=== PATIENT | female | born 1970 | race African-American/Black ===

== ENCOUNTER → 2016-04-22 | Outpatient (CLI) | payer MEDICARE, OTHER ==
--- NOTE | 2016-04-22 12:02 | MR ---
EXAMINATION TYPE: MR cervical spine wo con DATE OF EXAM: 04/22/2016 11:53 AM COMPARISON: NONE HISTORY: Neck pain TECHNIQUE: Multiplanar, multisequence images of the cervical spine were acquired. C2-C3: No evidence for degenerative disc disease. No disc bulge/herniation or protrusion. No Canal stenosis. Foramina are patent bilaterally. C3-C4: There is mild disc desiccation is seen. Mild posterior central disc bulge with minimal effacem ent of the ventral thecal sac. No evidence for disc herniation, protrusion or central stenosis. Miriam noelle are patent bilaterally. C4-C5: There is mild disc desiccation is seen. Mild posterior central disc bulge with minimal effacem ent of the ventral thecal sac. No evidence for disc herniation, protrusion or central stenosis. Miriam noelle are patent bilaterally. C5-C6: There is mild disc desiccation is seen. Mild posterior central disc bulge with minimal effacem ent of the ventral thecal sac. No evidence for disc herniation, protrusion or central stenosis. Miriam noelle are patent bilaterally. C6-C7: No evidence for degenerative disc disease. No disc bulge/herniation or protrusion. No Canal stenosis. Foramina are patent bilaterally. C7-T1: No evidence for degenerative disc disease. No disc bulge/herniation or protrusion. No Canal stenosis. Foramina are patent bilaterally. Cervical segments are intact. There is normal alignment. Cervical spinal cord is of normal signal. Craniovertebral junction relationships are within normal limits. IMPRESSION: Mild degenerative disc space narrowing and disc bulging is noted.
== END | disposition home or self-care (01) ==
LOC: RADMRIMAIN 11:23
PROVIDERS: ATTEND Psychiatry & Neurology Pain Medicine
DX: M48.02 Spinal stenosis, cervical region (principal); M50.20 Other cervical disc displacement, unspecified cervical region
CPT/HCPCS: 72141

== ENCOUNTER → 2016-05-04 | Outpatient (CLI) | payer MEDICARE, OTHER ==
--- NOTE | 2016-05-04 11:41 | MR ---
EXAMINATION TYPE: MR lumbar spine wo con DATE OF EXAM: 05/04/2016 10:43 AM COMPARISON: 03/05/2011 HISTORY: Chronic lumbar pain TECHNIQUE: T1 and T2 axial and sagittal images of the lumbar spine are submitted. FINDINGS: There is no abnormal signal seen within the visualized spinal cord or paraspinal soft tissu es. At L1-2 there is no disc herniation or canal stenosis. No foraminal encroachment. At L2-3 there is no evidence of degenerative disc disease, disc herniation or canal stenosis. At L3-4 there is mild degenerative disc disease and facet arthropathy but no focal herniation or lisa l stenosis. Neural foramina patent. At L4-5 there is mild degenerative disc disease but no evidence of focal disc herniation or canal zenaida nosis. No foraminal encroachment. Mild facet arthropathy. At L5-S1 there is no disc herniation or canal stenosis. No foraminal encroachment. IMPRESSION: 1. Mild degenerative disc disease L3-4 and L4-5 with mild facet arthropathy but no evidence of discre te herniation or canal stenosis at any of the visualized levels.
== END | disposition home or self-care (01) ==
LOC: RADMRIMAIN 09:52
PROVIDERS: ATTEND Psychiatry & Neurology Pain Medicine
DX: M51.36 Other intervertebral disc degeneration, lumbar region (principal); M46.96 Unspecified inflammatory spondylopathy, lumbar region
CPT/HCPCS: 72148